=== PATIENT | male | born 1985 | race Caucasian/White ===

== ENCOUNTER 2020-05-12 15:11 | Emergency (ER) | payer BC, OTHER ==
[~2020-05-12] VITALS: Ht 180.3 cm; Wt 124.7 kg
[2020-05-12 16:23] LABS: HEMATOCRIT 44.7 % (42.0-52.0); MCH 29.2 pg (26.0-34.0); MCHC 33.6 g/dL (28.0-37.0); MCV 86.7 fL (80.0-100.0); RBC 5.15 mil/uL (4.50-6.00); RDW 13.5 % (10.5-14.5); WBC 9.9 thou/uL (4.0-11.0)
[2020-05-12 16:35] LABS: ANION GAP 8 mmol/L (7-16); BUN 10 mg/dL (7-18); CALCIUM 9.5 mg/dL (8.5-10.1); CHLORIDE 104 mmol/L (98-107); CO2 28 mmol/L (21-32); CREATININE 1.1 mg/dL (0.7-1.3); GLUCOSE 95 mg/dL (74-106); POTASSIUM 3.9 mmol/L (3.5-5.1); SODIUM 140 mmol/L (136-145)
[2020-05-12 16:43] LABS: TROPONIN-I <0.06 ng/mL (<0.06)
[2020-05-12 17:45] VITALS: BP 117/76
--- NOTE | 2020-05-14 11:12 | EKG ---
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 05/14/20 1112 1517 1517 Elmer Rivera MD, FACC /EPI
== END 2020-05-12 17:50 | disposition home or self-care (01) ==
LOC: ER 15:11
PROVIDERS: Nurse Practitioner
DX: R07.89 Other chest pain (principal); R00.2 Palpitations; R42 Dizziness and giddiness; E66.9 Obesity, unspecified

== ENCOUNTER → 2020-07-05 | Outpatient (CLI) | payer BC, OTHER | LOC: SJCVCIMAG 06-25 12:20 | PROVIDERS: ATTEND Internal Medicine | DX: I34.0 Nonrheumatic mitral (valve) insufficiency (principal); I10 Essential (primary) hypertension ==